=== PATIENT | male | born 1950 | race Caucasian/White ===

== ENCOUNTER 2021-09-26 09:20 | Emergency (ER) | payer MEDICARE ==
[~2021-09-26] VITALS: Ht 177.8 cm; Wt 84.1 kg
[2021-09-26 09:31] VITALS: BP 137/78
--- NOTE | 2021-09-26 10:41 | NUR ---
dr. [email or web address] speaking with pt.
[2021-09-26] MEDS ORDERED: NIRM1TAB PO (10:47)
== END 2021-09-26 11:11 | disposition home or self-care (01) ==
LOC: ER 09:20
DX: U07.1 COVID-19 (principal); R51.9 Headache, unspecified; R50.9 Fever, unspecified; Z79.899 Other long term (current) drug therapy
CPT/HCPCS: 99283

== ENCOUNTER 2023-07-07 21:33 | Emergency (ER) | payer MEDICARE, OTHER ==
[~2023-07-07] VITALS: Ht 177.8 cm; Wt 87.7 kg
[~2023-07-07 21:33] MED LIST: NIRM1TAB PO
[2023-07-07 21:34] VITALS: BP 148/80; PULSE 82; RESP 16; TEMP 98.9; O2SAT 96
== END 2023-07-08 01:08 | disposition left against medical advice (07) ==
LOC: ER 21:34
DX: M79.602 Pain in left arm (principal); Z53.21 Procedure and treatment not carried out due to patient leaving prior to being seen by health care provider
CPT/HCPCS: 99281